=== PATIENT | male | born 1955 | race Caucasian/White ===

== ENCOUNTER 2016-09-15 06:14 | Day surgery (SDC) | payer OTHER ==
[~2016-09-15] VITALS: Ht 185.4 cm; Wt 110.8 kg
[~2016-09-15 06:14] MED LIST: ALBU6.7H INH; ASPI81TA82 PO; CARV12.52 PO; CETI10 PO; CORE6.25 PO; DICL50 PO; FLON0.053; FURO40TA PO; GLIM4TAB PO; HYDROCHLOROTHIAZIDE PO; KCL20 PO; LISI-363 PO; LISINOPRIL PO; METF-324 PO; OMEP20TA PO; ROBA750T3 PO; TRAZ100 PO; ULTR50TA PO
[2016-09-15] MEDS ORDERED: NS 1000P @30 MLS/HR (KVO) IV SCH (07:00)
[2016-09-15 07:05] VITALS: BP 132/86; PULSE 72; RESP 18; TEMP 98.3; O2SAT 98
[2016-09-15] MEDS ORDERED: FLUT1SPR22 NASAL (07:21)
[2016-09-15] MEDS ORDERED: ALBU6.7H INH (07:21)
[2016-09-15] MEDS ORDERED: CARV25TA PO (07:21)
[2016-09-15] MEDS ORDERED: DICL50TA3 PO (07:21)
[2016-09-15] MEDS ORDERED: TRAZ50TA12 PO (07:21)
[2016-09-15] MEDS ORDERED: GLIM4TAB PO (07:21)
[2016-09-15] MEDS ORDERED: FURO40TA PO (07:21)
[2016-09-15] MEDS ORDERED: RANI150T PO (07:21)
[2016-09-15] MEDS ORDERED: METF1000 PO (07:21)
[2016-09-15] MEDS ORDERED: TRAM50TA PO (07:21)
[2016-09-15] MEDS ORDERED: CETI10 PO (07:21)
[2016-09-15] MEDS ORDERED: OMEP20TA PO (07:21)
[2016-09-15] MEDS ORDERED: METH500T3 PO (07:21)
[2016-09-15] MEDS ORDERED: LISI-515 PO (07:21)
[2016-09-15] MEDS ORDERED: HYDR1CRE73 TOPICAL (07:21)
[2016-09-15] MEDS ORDERED: POTA-163 PO (07:21)
[2016-09-15] MEDS ORDERED: HEPARIN-NS/PF INJ 500 ML ONE (08:08)
[2016-09-15] MEDS ORDERED: MIDAZOLAM HCL 2 MG/2 ML VIAL ONE (08:10)
[2016-09-15] MEDS ORDERED: SODIUM CHLOR 0.9% 1000 ML INJ 1,000 ML IV SCH (08:35)
[2016-09-15] MEDS ORDERED: LORazepam 2 MG/ML VIAL IV PRN (08:45)
[2016-09-15] MEDS ORDERED: METOCLOPRAMIDE HCL 10 MG/2 ML VIAL IV PRN (08:45)
[2016-09-15] MEDS ORDERED: BACITRACIN OINT 0.9 GM PKT TOP ONE (08:45)
[2016-09-15] MEDS ORDERED: LIDOCAINE HCL 1% 50 ML VIAL INFIL PRN (08:45)
[2016-09-15] MEDS ORDERED: SODIUM CHLOR 0.9% 250 ML INJ 250 ML IV PRN (08:45)
[2016-09-15] MEDS ORDERED: MISC INFORMATION XX ONE (08:45)
[2016-09-15] MEDS ORDERED: ATROPINE SULFATE 1 MG/ML VIAL IV PRN (08:45)
[2016-09-15] MEDS ORDERED: ONDANSETRON HCL 4 MG/2 ML VIAL IV PRN (08:45)
[2016-09-15] MEDS ORDERED: IOHEXOL 350 MG/ML 50 ML BTL (for Cath Lab) OTHER ONE (10:31)
[2016-09-15] MEDS ORDERED: INSULIN REGULAR (IV INFUSION) 100 UNITS in SODIUM CHLORIDE 0.9% INJ 100 ML IV SCH (11:15)
--- NOTE | 2016-09-15 11:43 | MA ---
cc: HIRA ZHU MD DATE 09/15/2016 PROCEDURE The patient was prepped and draped in the usual fashion. A 6-sheath was inserted percutaneously into the right femoral artery. Coronary angiography was done with Rafael preformed catheters. Hemostasis was achieved with direct pressure results. The blood pressure was 140/100. CORONARY ANGIOGRAPHY The left main coronary was normal. Left anterior descending artery demonstrated some mild luminal irregularities but no significant stenoses were seen. Left circumflex artery arose from the left main and gave off a first obtuse marginal branch. There was no significant stenoses in the left circumflex system. Right coronary was anatomically dominant and was normal throughout its course. CONCLUSIONS Normal coronary arteries. Hira Zhu MD DLW/SSB /8:40 AM /11:37 AM
[2016-09-15 11:46] LABS: BLOOD, URINE NEG (NEG); COMMENT (UR) CULT NOT INDICATED; CULTURE IF INDICATED CULT NOT INDICATED; GLUCOSE,URINE NEG (NEG); KETONE, URINE NEG (NEG); NITRITE,URINE NEG (NEG); SQUAMOUS EPITHELIAL CELL URINE <1 /hpf (0-5); URINE COLOR LIGHT-YELLOW (YELLW/STRAW)
--- NOTE | 2016-09-15 12:15 | RADRPT ---
EXAM DATE/TIME: 09/15/2016 11:41 [facility] COMPARISON: No previous studies available for comparison. INDICATIONS : Pre op mitral valve replacement. MEDICAL HISTORY : Hypertension. Renal failure, chronic. Congestive heart failure. Diabetes. Mitral regurg. Shortness of breath. SURGICAL HISTORY : Bilateral hip surgery. ENCOUNTER: Initial ACUITY: 1 day PAIN SCORE: 0/10 LOCATION: Bilateral neck PEAK SYSTOLIC VELOCITIES (cm/sec): ICA/CCA RATIO: Right: 1.1 Left: 0.9 ICA: Right: 103 Left: 71 CCA: Right: 97 Left: 80 ECA: Right: 66 Left: 61 VERTEBRAL: Right: 42 antegrade Left: 51 antegrade Elevated flow velocities and ICA/CCA ratios have been found to correlate with increased degrees of vessel stenosis, calculated as percentage of diameter relative to a normal segment of distal ICA/CCA FINDINGS: RIGHT CAROTID: No significant stenosis is visualized. The waveforms are within normal limits. LEFT CAROTID: No significant stenosis is visualized. The waveforms are within normal limits. VERTEBRAL ARTERIES: Antegrade flow is seen in both vertebral arteries. MISCELLANEOUS: None. CONCLUSION: 1. No evidence for hemodynamically significant stenosis. Roger Garnett MD on September 15, 2016 at 12:13 Board Certified Radiologist. This report was verified electronically.
[2016-09-15 12:44] LABS: AUTOMATED NEUTROPHIL # 5.9 TH/MM3 (1.8-7.7); BASOPHIL % 0.4 % (0.0-2.0); EOSINOPHIL # 0.1 TH/MM3 (0-0.4); EOSINOPHIL % 0.7 % (0.0-4.0); HEMATOCRIT 27.3 % (39.0-51.0); LYMPH % 19.3 % (9.0-44.0); LYMPHOCYTE # 1.6 TH/MM3 (1.0-4.8); MEAN CELL VOLUME 74.8 FL (80.0-100.0); MEAN CORPUSCULAR HGB CONC 32.1 % (32.0-36.0); MONO % 6.6 % (0.0-8.0); PLATELET COUNT 244 TH/MM3 (150-450); RED BLOOD COUNT 3.65 MIL/MM3 (4.50-5.90); WHITE BLOOD COUNT 8.1 TH/MM3 (4.0-11.0)
[2016-09-15 12:47] LABS: HEMO FLAGS AUTO DIFF
--- NOTE | 2016-09-15 12:56 | MB ---
cc: GRETA FORTE DATE OF CONSULTATION 09/15/[address] Hill CLINICAL INFORMATION SYSTEMS DIRECTOR Dr. Hira Zhu DATE OF 02/23/1959. HISTORY OF PRESENT ILLNESS A 61-year-old male with history of mitral valve regurgitation and also tricuspid valve involvement, complaining of shortness of breath and wheezing when trying to climb the stairs to the second floor, prior history of congestive heart failure. He underwent 2-D echo by Dr. Zhu and was found to have a mildly dilated left ventricle, EF of 60%, mild concentric left ventricular hypertrophy. The right ventricle was also dilated. The left atrium was mildly moderately dilated. The right atrial size is mild to moderately dilated. There was some anterior mitral valve leaflet prolapse, moderate mitral valve regurgitation, moderate to severe tricuspid valve regurgitation, moderate to severe pulmonary hypertension with pulmonary artery systolic pressures of 69, inferior vena cava normal in size. We were consulted to evaluate for mitral valve replacement versus repair and also tricuspid valve repair. PAST MEDICAL HISTORY 1. Hypertension. 2. Hyperlipidemia. 3. Chronic kidney disease Stage III. 4. Diabetes mellitus with diabetic neuropathy. 5. Degenerative disk disease. 6. Gastroesophageal reflux disease. 7. Insomnia. 8. Lumbar radiculopathy. 9. Migraine headaches. 10. Rotator cuff tendonitis PAST SURGICAL HISTORY 1. Colonoscopy. 2. Esophagogastroduodenoscopy. 3. He has had bilateral hip surgery and unfortunately apparently had DVT in his right lower leg in the 1980s which, then he apparently developed pulmonary emboli where he was placed on Coumadin for about a year. ALLERGIES No known allergies. HOME MEDICATIONS 1. Coreg 25 b.i.d. 1. Diclofenac. 2. Flonase. 3. Lasix 40 daily. 4. Glimepiride 4 mg daily. 5. Lisinopril 20 p.o. b.i.d. 6. Metformin 1000 b.i.d. 7. Methocarbamol 500 p.o. b.i.d. 8. Omeprazole 20 p.o. daily. 9. Potassium chloride 20 b.i.d. 10. Proventil inhaler p.r.n. as needed. 11. Zantac 150 daily. 12. Tramadol 50 p.o. t.i.d. p.r.n. for pain. 13. Trazodone 50 q.h.s. for sleep. FAMILY HISTORY Noncontributory. SOCIAL HISTORY The patient is . No tobacco or alcohol. 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 REVIEW OF SYSTEMS IN GENERAL: No night sweats, fever, heat and cold intolerance. SKIN: No psoriasis, itching or hives. HEENT: No blurred vision, hearing loss. RESPIRATORY: Positive for shortness of breath. No cough. CARDIOVASCULAR: No paroxysmal nocturnal dyspnea. No orthopnea. GASTROINTESTINAL: No diarrhea, vomiting. GENITOURINARY: No burning frequency, urgency. NEWSPAPER LIBRARY MANAGER: No history of TIA, CVA, seizure disorder. ENDOCRINOLOGY: Positive for diabetes. PHYSICAL EXAMINATION VITAL SIGNS: Blood pressure 130/80, heart rate 72, afebrile, respiratory rate of 18, room air sat 96%. GENERAL: The patient is awake, alert, in no acute distress. HEENT: Head is normocephalic, atraumatic. Pupils equal and reactive. Oral mucosa pink, moist. NECK: Supple. No JVD. HEART SOUNDS: S1, S1. Grade 3/6 systolic murmur best noted at the apex. LUNGS: Clear to auscultation. No wheezes, rales or rhonchi. ABDOMEN: Soft, nontender. No masses or organomegaly. EXTREMITIES: No cyanosis, clubbing or edema. LAB WORK Hemoglobin 10.4, hematocrit 32, white cell count of 11, platelet count 289, MCV is 76. Sodium 143, potassium 5.0, BUN of 27, creatinine 1.57, glucose 73, INR 1.0. 2-D ECHO As above in HPI. CAROTID ULTRASOUND Pending. CHEST X-RAY Pending. IMPRESSION This is a very pleasant 61-year-old male with moderate mitral regurgitation, also tricuspid valve regurgitation with elevated pulmonary artery systolic pressure of 69. The cardiac films have been evaluated by Dr. Greta Forte and a cardiac cath was reviewed. The patient did not have any coronary artery disease. PLAN AT THIS TIME Mitral valve repair versus replacement and tricuspid valve repair will be scheduled for September 25, 2016. The patient is a agreeable to proceed. Further planning as per Dr. Greta Forte. Dictated by: ANTOINE Chaves MD FIDEL Gee/DERECK /11:42 AM /12:53 PM
[2016-09-15 13:15] LABS: OVALOCYTES 1+ (NORMAL)
[2016-09-15 13:16] LABS: SCAN/DIFF AUTO DIFF CONFIRMED
--- NOTE | 2016-09-15 15:57 | RADRPT ---
EXAM DATE/TIME: 09/15/2016 15:42 [facility] COMPARISON: CHEST PA & LAT, November 12, 2013, 14:22. INDICATIONS : Evaluate for pneumonia, pneumothorax, and communicable disease. Pre op heart surgery. MEDICAL HISTORY : None. SURGICAL HISTORY : None. ENCOUNTER: Initial ACUITY: 1 day PAIN SCORE: 0/10 LOCATION: Bilateral chest FINDINGS: There is stable blunting of the right lateral costophrenic angle slight elevation of the right hemidi aphragm. The lungs are otherwise clear. There are degenerative changes of the spine and mild cardiome jose. CONCLUSION: No significant change has occurred. oRger Garnett MD on September 15, 2016 at 15:55 Board Certified Radiologist. This report was verified electronically.
[2016-09-15 17:38] LABS: HEMOGLOBIN A1a 1.2 %; HEMOGLOBIN A1b 1.8 %; HEMOGLOBIN Ao 83.9 %; HEMOGLOBIN LA1C 2.4 %; HEMOGLOBIN P3 5.8 %
--- NOTE | 2016-10-07 10:04 | RSPPFT ---
DATE OF PROCEDURE: 09/15/16 COMMENTS: Spirometry with FVC of 3.5 predicted 4.9, FEV1 of 2.7 predicted 3.9, FEV1/FVC ratio 78% predicted 79%. IMPRESSION: On the basis of the above, patient's flow values are marginally decreased and lung volumes would be necessary.
== END 2016-09-15 16:24 | disposition home or self-care (01) ==
LOC: HDOC 06:14 → HDIC 06:14 → HDOC 16:24
PROVIDERS: ATTEND Internal Medicine Cardiovascular Disease
DX: I34.0 Nonrheumatic mitral (valve) insufficiency (principal); I50.9 Heart failure, unspecified; I27.2 Other secondary pulmonary hypertension; I12.9 Hypertensive chronic kidney disease with stage 1 through stage 4 chronic kidney disease, or unspecified chronic kidney disease; N18.3 Chronic kidney disease, stage 3 (moderate); E11.40 Type 2 diabetes mellitus with diabetic neuropathy, unspecified; E78.5 Hyperlipidemia, unspecified; K21.9 Gastro-esophageal reflux disease without esophagitis; Z79.84 Long term (current) use of oral hypoglycemic drugs; Z86.711 Personal history of pulmonary embolism; Z86.718 Personal history of other venous thrombosis and embolism; Z01.818 Encounter for other preprocedural examination
CPT/HCPCS: 71020; 81001; 82948; 83036; 85025; 87641; 93454; 93880; 94010; C1769; C1893; J1644; J2250; J7030; Q9967

== ENCOUNTER 2016-09-16 17:01 | Inpatient (IN) | payer OTHER ==
[~2016-09-16] VITALS: Ht 185.4 cm; Wt 114.8 kg
[~2016-09-16 17:01] MED LIST changes: -ASPI81TA82 PO; -CARV12.52 PO; +CARV25TA PO; -CORE6.25 PO; -DICL50 PO; +DICL50TA3 PO; -FLON0.053; +FLUT1SPR22 NASAL; +HYDR1CRE73 TOPICAL; -HYDROCHLOROTHIAZIDE PO; -KCL20 PO; -LISI-363 PO; +LISI-515 PO; -LISINOPRIL PO; -METF-324 PO; +METF1000 PO; +METH500T3 PO; +POTA-163 PO; +RANI150T PO; -ROBA750T3 PO; +TRAM50TA PO; -TRAZ100 PO; +TRAZ50TA12 PO; -ULTR50TA PO
[2016-09-25] VITALS (8 sets, daily range): BP systolic 113–152; BP diastolic 72–95; PULSE 78–88; RESP 10–18; TEMP 97.5–98.6; O2SAT 95–99
[2016-09-25] MEDS ORDERED: ceFAZolin 2 GM PREMIX 50 ML IV ONE (05:00)
[2016-09-25] MEDS ORDERED: VECURONIUM BROMIDE 10 MG VIAL IV ONE (05:00)
[2016-09-25] MEDS ORDERED: EPINEPHrine HCL (1:1000) 1 MG/ML VIAL IV ONE (05:00)
[2016-09-25] MEDS ORDERED: PHENYLEPHRINE HCL 10 MG/ML VIAL IV ONE (05:00)
[2016-09-25] MEDS ORDERED: DEXMEDETOMIDINE IV ONE (05:00)
[2016-09-25] MEDS ORDERED: MAGNESIUM SULFATE 1000 MG/2 ML VIAL (PED) IV ONE (05:00)
[2016-09-25] MEDS ORDERED: CALCIUM CHLORIDE 10% SOLN 1 GRAM/10 ML SYR IV ONE (05:00)
[2016-09-25] MEDS ORDERED: SODIUM CHLORIDE 0.9% IV ONE (05:00)
[2016-09-25] MEDS ORDERED: PROTAMINE SULFATE 250 MG/25 ML VIAL IV ONE ×2 (05:00→09:44)
[2016-09-25] MEDS ORDERED: LIDOCAINE HCL 2% 100 MG/5 ML SYRINGE IV PUSH ONE (05:00)
[2016-09-25] MEDS ORDERED: ARTIFICIAL TEARS OPTH OINT 3.5 APPLIC/3.5 GM TUBO ONE (05:00)
[2016-09-25] MEDS ORDERED: ACETAMINOPHEN 1000 MG/100 ML VIAL IV ONE (05:00)
[2016-09-25] MEDS ORDERED: LIDOCAINE HCL 1% 30 ML VIAL OTHER ONE (05:00)
[2016-09-25] MEDS ORDERED: HEPARIN SODIUM - SQ 10,000 UNITS/ML VIAL SQ ONE (05:00)
[2016-09-25] MEDS ORDERED: INSULIN HUMAN REGULAR 1,000 UNITS/10 ML VIAL SQ PRN (09:00)
[2016-09-25] MEDS ORDERED: METOPROLOL TARTRATE 25 MG TAB PO SCH (09:00)
[2016-09-25] MEDS ORDERED: CHLORHEXIDINE GLUCONATE 4% SOLN 120 ML BTL TOPICAL SCH (09:00)
[2016-09-25] MEDS ORDERED: CEFAZOLIN 500 MG in NS IRR BTL 500 ML IRRIGATION SCH (09:00)
[2016-09-25] MEDS ORDERED: POVIDONE IODINE 5% (ANTISEPSIS KIT) 4 APPLICATIONS EACH NARE PRN (09:00)
[2016-09-25] MEDS ORDERED: INSULIN REGULAR 100 UNITS in NS 100 ML IV SCH (09:00)
[2016-09-25] MEDS ORDERED: ceFAZolin 2 GM PREMIX 50 ML IV SCH (09:00)
[2016-09-25] MEDS ORDERED: CHLORHEXIDINE GLUCONATE 2 % 1 PACK (2 CLOTHS) TOPICAL PRN (09:00)
[2016-09-25] MEDS ORDERED: METOPROLOL TARTRATE 25 MG TAB PO PRN (09:00)
[2016-09-25] MEDS ORDERED: LACTATED RINGER'S 1000 ML IV PRN (09:00)
[2016-09-25] MEDS ORDERED: SODIUM CHLORID 0.9% 500 ML IV PRN (09:00)
[2016-09-25] MEDS ORDERED: ASPI81CH CHEW (09:12)
[2016-09-25] MEDS ORDERED: DILTIAZEM IRRIGATION SCH (09:15)
[2016-09-25] MEDS ORDERED: SODIUM CHLORIDE 0.9% IRRIGATION SCH (09:15)
[2016-09-25] MEDS ORDERED: NITROGLYCERIN IRRIGATION SCH (09:15)
[2016-09-25] MEDS ORDERED: NORMOSOL R INJ 2,000 ML IV ONE (09:45)
[2016-09-25] MEDS ORDERED: SODIUM CHLORID 0.9% 500 ML INJ 500 ML IV ONE (09:45)
[2016-09-25] MEDS ORDERED: LACTATED RINGER'S 1000 ML INJ 2,000 ML IV ONE (09:45)
[2016-09-25] MEDS ORDERED: SODIUM CHLOR 0.9% 250 ML INJ 500 ML IV ONE (09:45)
[2016-09-25] MEDS ORDERED: CUSTODIOL HTK IRR SOLN 1,000 ML ONE (09:56)
[2016-09-25] MEDS ORDERED: HEPARIN SODIUM - IV 10,000 UNITS/10 ML VIAL ONE (09:57)
[2016-09-25] MEDS ORDERED: MANNITOL INJ 50 ML ONE (09:57)
[2016-09-25] MEDS ORDERED: ALBUMIN HUMAN 25% 12.5 GM/50 ML BAGP IV ONE (09:58)
[2016-09-25] MEDS ORDERED: POTASSIUM CHLORIDE 20 MEQ/10 ML VIAL ONE (09:58)
[2016-09-25] MEDS ORDERED: SODIUM BICARBONATE 8.4% INJ 50 ML ONE (09:59)
[2016-09-25] MEDS ORDERED: HEPARIN SODIUM - SQ 10,000 UNITS/ML VIAL ONE (10:05)
[2016-09-25] MEDS ORDERED: ceFAZolin 2 GM PREMIX 50 ML ONE (10:05)
[2016-09-25] MEDS ORDERED: methylPREDNISolone SOD SUCC 125 MG/2 ML VIAL ONE (10:05)
[2016-09-25] MEDS ORDERED: VANCOMYCIN HCL 1000 MG VIAL ONE (10:05)
[2016-09-25] MEDS ORDERED: BUPIVACAINE HCL PF 0.5% 30 ML VIAL ONE (10:06)
[2016-09-25] MEDS ORDERED: ceFAZolin INJ 1,000 MG VIAL IV ONE (15:50)
[2016-09-25] MEDS ORDERED: LACTATED RINGER'S 1000 ML INJ 500 ML IV PRN (16:36)
[2016-09-25] MEDS ORDERED: ONDANSETRON HCL 4 MG/2 ML VIAL IV PUSH PRN (16:45)
[2016-09-25] MEDS ORDERED: ACETAMINOPHEN 325 MG TAB PO PRN (16:45)
[2016-09-25] MEDS ORDERED: ACETAMINOPHEN 650 MG SUPP RECTAL PRN (16:45)
[2016-09-25] MEDS ORDERED: CALCIUM CHLORIDE INJ 1 GM in SODIUM CHLORIDE 0.9% INJ 100 ML IV PRN (16:45)
[2016-09-25] MEDS ORDERED: DEXTROSE 50% IN WATER 50 ML VIAL(D50) IV PUSH PRN (16:45)
[2016-09-25] MEDS ORDERED: MAGNESIUM SULFATE INJ 2 GM in SODIUM CHLORIDE 0.9% INJ 100 ML IV PRN ×4 (16:45)
[2016-09-25] MEDS ORDERED: Post-op Orders (for Pharmacy) MISC OTHER ONE (16:45)
[2016-09-25] MEDS ORDERED: hydrALAZINE HCL 20 MG/ML VIAL IV PRN (16:45)
[2016-09-25] MEDS ORDERED: CALCIUM CHLORIDE 10% 1 GRAM/10 ML VIAL IV PRN (16:45)
[2016-09-25] MEDS ORDERED: MEPERIDINE HCL 25 MG/ML VIAL IV PRN (16:45)
[2016-09-25] MEDS ORDERED: METOPROLOL TARTRATE 5 MG/5 ML VIAL IV PUSH PRN (16:45)
[2016-09-25] MEDS ORDERED: POTASSIUM CHLOR 20 MEQ PREMIX 100 ML IV PRN ×3 (16:45)
[2016-09-25] MEDS ORDERED: POTASSIUM CHLORIDE 20 MEQ CONTROLLED RELEASE TAB PO PRN ×2 (16:45)
[2016-09-25] MEDS ORDERED: INSULIN REGULAR (IV INFUSION) 100 UNITS in SODIUM CHLORIDE 0.9% INJ 99 ML IV SCH (17:00)
[2016-09-25] MEDS ORDERED: CLEVIDIPINE INJ 50 ML IV SCH (17:00)
--- NOTE | 2016-09-25 17:13 | PD.OP ---
cc: Greta Forte MD; Hira Zhu MD Operative Report Date of Surgery: Sep 25, 2016 Preoperative Diagnosis: (1) Acute congestive heart failure (2) Mitral regurgitation Postoperative Diagnosis: same Cyst of unknown etiology behind the aorta and left atrium Dense pericardial adhesions Procedure: Mitral valve replacement with a 31/33 OnX mechanical valve, OPAL Attempted minimally invasive approach with a right thoracotomy Anesthesia: Dr. Nolasco Surgeon: Greta Forte Travel Occupational Therapist(s): Brandon Pelletier Operation and Findings: The risks, benefits, complications, treatment options, and expected outcomes were discussed with the patient. The possibilities of reaction to medication, pulmonary aspiration, perforation of viscus, bleeding, recurrent infection, the need for additional procedures, failure to diagnose a condition, and creating a complication requiring transfusion or operation were discussed with the patient. The patient concurred with the proposed plan, giving informed consent. The site of surgery properly noted/marked. The patient was taken to Operating Room, identified as Javier Claudio and the procedure verified as Mitral Valve Replacement, OPAL. A Time Out was held and the above information confirmed. Standard monitoring lines and Grider catheter were placed. General anesthesia was induced. The patient was prepped and draped in a sterile fashion. A 6 cm right anterolateral thoracotomy was performed An Miguel Angel retractor was placed followed by a small chest retractor. The left lung was selectively ventilated. Adhesions between the right lung and mediastinum were divided. The pericardium was opened and dense adhesions were appreciated between the pericardium and epicardium. No plane could be developed to expose the aorta. Therefore, a median sternotomy was performed. The pericardium was opened and adhesions between the pericardium, epicardium and great vessels were divided using sharp and blunt dissection. There were dense calcified adhesions between the aorta, right atrium, pericardium and SVC. The patient was heparinized for cardiopulmonary bypass. The heart was instrumented for cardiopulmonary bypass in the usual manner. Antegrade Custodiol cardioplegia was employed. The patient was placed on cardiopulmonary bypass. Once the heart was decompressed, adhesions could safely be divided involving the SVC and pericardium to allow access to Waterston's groove. During the course of this dissection, a thick- walled cystic cavity was entered behind the aorta and left atrium. Yellow, cloudy fluid was evacuated from this pocket which measured approximately ~4 x 3 cm. Fluid was sampled for cultures and a stat gram stain was sent. The gram stain did not show any organisms. The wall of this cavity was biopsied and submitted to surgical pathology. Waterston's groove was exposed. An aortic cross-clamp was applied and the heart was arrested using cold Custodiol cardioplegia. The left atrium was entered under direct vision and the atriotomy was extended inferiorly and posteriorly. The mitral valve was exposed using an automatic retractor. Due to the mediastinal adhesions, exposure and instrumentation of the valve was performed through the previously placed right thoracotomy. The valve was analyzed and sized to a 31/33/ OnX mechanical valve. which was seated using several interrupted 2-0 Tycron pledgeted horizontal mattress sutures. After securing the sutures, the left atrium was closed using a running 4-0 Prolene suture and a small catheter was left in the left atrium to assist in venting the heart. The patient was systemically rewarmed. The heart was vigorously deaired with a clamp on. The patient was placed in Trendelenburg's position. The clamp was removed, deairing continued. Intraoperative OPAL was used to assess intracardiac air and the mitral valve replacement. Once the air was evacuated, the vent in the left atrium was removed and the suture line was secured. The heart was loaded and allowed to eject and the mitral valve was analyzed by OPAL. The valve was well-seated with perivalvular leaks. The patient was weaned from cardiopulmonary bypass. Protamine was given. There was no adverse reaction. Decannulation was carried out without incident. Wound was checked for hemostasis which was obtained using electrocautery. A 36 Spanish mediastinal and 32 F right pleural chest tubes were placed and secured to the skin with 0 silk suture. The sternum was closed with stainless steel wire. The fascia was closed with 1. PDS. The subcutaneous tissue was closed using a running 2-0 Vicryl suture. The skin was closed with 4-0 Monocryl. The right thoracotomy was closed using a 2 Vicryl paracostal stitch. The pectoralis fascia was closed using a running 0 Vicryl suture. Subcutaneous tissue was closed with a 2-0 Vicryl suture and skin with 4-0 monocryl. Sterile dressings were placed. At the end of the operation, all sponge, instruments, and needle counts were correct. The patient was transferred to the CVICU in stable condition. Findings: Dense pericardial adhesions, especially involving the SVC, right atrium, aorta, and pericardium. A cystic cavity filled with yellow, cloudy fluid behind the aorta and left atrium. Flail anterior mitral valve leaflet with ruptured chordae. The patient had moderate TR at the beginning of the procedure which was improved after MVR. XC: 112 min CPB: 151 min Drains: mediastinal x 1 pleural x 1 Specimens: Aerobic, anaerobic, fungal cultures of cyst fluid, cyst wall biopsies Implants: OnX mechanical valve Complications: none Disposition: to CVICU in stable condition Greta Forte MD Sep 25, 2016 17:13
[2016-09-25] MEDS ORDERED: MIDAZOLAM HCL 5 MG/5 ML VIAL ONE (17:24)
[2016-09-25] MEDS ORDERED: fentaNYL CITRATE 1000 MCG/20 ML VIAL ONE (17:24)
--- NOTE | 2016-09-25 17:52 | RADRPT ---
EXAM DATE/TIME: 09/25/2016 17:16 [facility] COMPARISON: CHEST PA & LAT, September 15, 2016, 15:42. INDICATIONS : Post CABG. MEDICAL HISTORY : None. SURGICAL HISTORY : None. ENCOUNTER: Initial ACUITY: 1 day PAIN SCORE: Non-responsive. LOCATION: Bilateral chest FINDINGS: ET tube is present with tip overlapping approximately 3 cm above the ezra. There is evidence for pr ior median sternotomy. Slight bibasilar and bilateral perihilar infiltrate is seen. No definite pneum othorax is seen for technique. CONCLUSION: Bilateral perihilar infiltrate part of it could be due to edema, however pneumonia should also be ent ertained. Nelly Syed MD on September 25, 2016 at 17:49 Board Certified Radiologist. This report was verified electronically.
[2016-09-25] MEDS: ACETAMINOPHEN 1000 MG/100 ML VIAL IV SCH ×2 (18:58→23:03)
[2016-09-25] MEDS: AMIODARONE 200 MG TAB PO SCH (20:26)
[2016-09-25] MEDS: METOCLOPRAMIDE HCL 10 MG/2 ML VIAL IV PUSH SCH (20:26)
[2016-09-26] VITALS (19 sets, daily range): BP systolic 114–160; BP diastolic 69–98; PULSE 78–94; RESP 16–20; TEMP 98.2–98.8; O2SAT 92–99
[2016-09-26] MEDS: oxyCODONE/ACETAMINOPHEN 5 MG/325 MG TAB PO PRN ×6 (01:20→22:22)
[2016-09-26] MEDS: ACETAMINOPHEN 1000 MG/100 ML VIAL IV SCH ×2 (04:27→13:25)
--- NOTE | 2016-09-26 05:00 | RADRPT ---
EXAM DATE/TIME: 09/26/2016 04:21 [facility] COMPARISON: CHEST SINGLE AP, September 25, 2016, 17:16. INDICATIONS : Status post CABG. MEDICAL HISTORY : None. SURGICAL HISTORY : None. ENCOUNTER: Subsequent ACUITY: 1 day PAIN SCORE: Non-responsive. LOCATION: chest FINDINGS: A single portable frontal view of the chest shows interval removal of the endotracheal tube. Left sub clavian central line remains. Subxiphoid and right thoracostomy tube remains. No pneumothorax. Patchy parenchymal consolidation involving both lung bases is stable. Heart is normal size. No effusions. CONCLUSION: Interval extubation. Patchy basilar consolidation likely related to atelectasis. No discrete infiltra te observed. Damian Chase Jr., MD on September 26, 2016 at 4:57 Board Certified Radiologist. This report was verified electronically.
[2016-09-26 05:29] LABS: HEMATOCRIT 28.7 % (39.0-51.0); MEAN CELL VOLUME 75.6 FL (80.0-100.0); MEAN CORPUSCULAR HEMOGLOBIN 24.1 PG (27.0-34.0); MEAN CORPUSCULAR HGB CONC 31.8 % (32.0-36.0); PLATELET COUNT 177 TH/MM3 (150-450); RED CELL DISTRIBUTION WIDTH 16.7 % (11.6-17.2); WHITE BLOOD COUNT 18.7 TH/MM3 (4.0-11.0)
[2016-09-26 05:30] LABS: REVIEW FLAG FINAL
[2016-09-26 05:44] LABS: MAGNESIUM 2.3 MG/DL (1.5-2.5); POTASSIUM 4.1 MEQ/L (3.5-5.1)
[2016-09-26] MEDS ORDERED: PANTOPRAZOLE SODIUM 40 MG VIAL IV PUSH SCH (06:00)
[2016-09-26] MEDS: PANTOPRAZOLE SOD 40 MG DELAYED RELEASE TAB PO SCH (06:07)
[2016-09-26] MEDS: METOCLOPRAMIDE HCL 10 MG/2 ML VIAL IV PUSH SCH ×4 (06:11→22:02)
[2016-09-26] MEDS ORDERED: INSULIN DETEMIR 100 UNITS/ML VIAL SQ ONE (08:45)
[2016-09-26] MEDS ORDERED: BISACODYL 10 MG SUPP RECTAL PRN (08:45)
[2016-09-26] MEDS ORDERED: SOD PHOSPHATE/SOD BIPHOSPHATE (ADULT) ENEMA 133ML RECTAL PRN (08:45)
[2016-09-26] MEDS ORDERED: DEXTROSE 50% IN WATER 50 ML VIAL(D50) IV PRN (08:45)
[2016-09-26] MEDS ORDERED: GLUCAGON 1 MG/ML VIAL OTHER PRN (08:45)
[2016-09-26] MEDS ORDERED: FUROSEMIDE 20 MG/2 ML VIAL IV PUSH ONE (09:00)
[2016-09-26] MEDS ORDERED: POTASSIUM CHLORIDE 10 MEQ CONTROLLED RELEASE TAB PO ONE (09:00)
[2016-09-26] MEDS: MULTIVITAMINS/MINERALS THERAPEUTIC TAB PO SCH (09:29)
[2016-09-26] MEDS: CARVEDILOL 3.125 MG TAB PO SCH ×2 (09:29→22:02)
[2016-09-26] MEDS: ASPIRIN 81 MG CHEW TAB PO SCH (09:30)
[2016-09-26] MEDS: AMIODARONE 200 MG TAB PO SCH ×2 (09:30→22:02)
[2016-09-26] MEDS: INSULIN ASPART SUPPLEMENTAL SCALE SQ SCH ×4 (10:00→22:12)
[2016-09-26] MEDS: RESP: ALBUTEROL 2.5 MG/IPRATROPIUM 0.5 MG NEB (SCH) NEB ×2 (13:06→21:26)
--- NOTE | 2016-09-26 14:14 | PD.CAR.PN ---
CVT Progress Note CVT: POD #: 1 Subjective/Hospital Course: 61/ male hx of severe MR and TR echo i August showed dilation of LV with preserved EF , pt had noted some mild dyspnea with exertion PMH: HTN, HLP, mild CHF EF 60% , CKD stage 111, DM surgery: Mitral valve replacement with a OnX mechanical valve, OPAL Attempted minimally invasive approach with a right thoracotomy cyst removed from behind aorta and left atrium ( gram stain neg for organisms ) 09/25 3200cc/ crystalloid, 750cc cell saver, EBL 1500 extubated after surgery 09/26 pt up in chair, pain controlled weaned off insulin gtt resume oral Diabetic meds in am pulm toileting , nebs, ezpap will transfer to stepdown Objective: GENERAL: SKIN: Warm and dry.prevena dressing to chest HEAD: Normocephalic. EYES: No scleral icterus. No injection or drainage. NECK: Supple, trachea midline. No JVD or lymphadenopathy. CARDIOVASCULAR: Regular rate and rhythm without murmurs, gallops, or rubs. + click mild general edema RESPIRATORY: Breath sounds equal bilaterally. No accessory muscle use. chest tube to wall suction / 220cc/ 12 hrs GASTROINTESTINAL: Abdomen soft, non-tender, nondistended. MUSCULOSKELETAL: No cyanosis, or edema. BACK: Nontender without obvious deformity. No CVA tenderness. Vital Signs Date Time Temp Pulse Resp B/P Pulse Ox O2 Delivery O2 Flow Rate FiO2 09/26/16 12:30 98 Nasal Cannula 3.00 09/26/16 11:15 98.4 81 18 140/86 97 09/26/16 11:01 18 09/26/16 09:42 94 Nasal Cannula 3.00 09/26/16 07:46 83 09/26/16 07:46 98.2 83 16 147/97 98 141/74 09/26/16 07:46 98 Nasal Cannula 3.00 09/26/16 04:00 98.7 78 16 132/87 98 148/71 09/26/16 04:00 80 09/26/16 04:00 98 Nasal Cannula 4.00 09/26/16 00:00 99 Nasal Cannula 4.00 09/26/16 00:00 81 09/26/16 00:00 98.2 79 18 114/72 99 128/69 09/25/16 23:45 18 09/25/16 23:04 16 09/25/16 21:15 98 Nasal Cannula 3.00 09/25/16 20:00 97.7 80 18 127/82 98 137/73 09/25/16 20:00 98 Nasal Cannula 4.00 09/25/16 19:50 80 09/25/16 18:35 95 Nasal Cannula 4 09/25/16 18:35 95 Nasal Cannula 4.00 09/25/16 18:15 99 40 09/25/16 18:09 50 09/25/16 18:09 98 Mechanical Ventilator 50 09/25/16 18:09 98.6 88 10 113/72 97 135/72 09/25/16 17:19 99 50 Labs: Laboratory Tests Test 09/26/16 05:00 White Blood Count 18.7 TH/MM3 (4.0-11.0) Red Blood Count 3.80 MIL/MM3 (4.50-5.90) Hemoglobin 9.1 GM/DL (13.0-17.0) Hematocrit 28.7 % (39.0-51.0) Mean Corpuscular Volume 75.6 FL (80.0-100.0) Mean Corpuscular Hemoglobin 24.1 PG (27.0-34.0) Mean Corpuscular Hemoglobin 31.8 % Concent (32.0-36.0) Red Cell Distribution Width 16.7 % (11.6-17.2) Platelet Count 177 TH/MM3 (150-450) Mean Platelet Volume 7.4 FL (7.0-11.0) Sodium Level 143 MEQ/L (136-145) Potassium Level 4.1 MEQ/L (3.5-5.1) Chloride Level 109 MEQ/L (98-107) Carbon Dioxide Level 26.0 MEQ/L (21.0-32.0) Anion Gap 8 MEQ/L (5-15) Blood Urea Nitrogen 22 MG/DL (7-18) Creatinine 1.36 MG/DL (0.60-1.30) Estimat Glomerular Filtration 53 ML/MIN (>89) Rate Random Glucose 82 MG/DL (74-106) Calcium Level 7.8 MG/DL (8.5-10.1) Magnesium Level 2.3 MG/DL (1.5-2.5) Result Diagram: 09/26/16 0500 09/26/16 0500 Telemetry: NSR (1) Chronic back pain (2) Mitral regurgitation (3) S/P MVR (mitral valve replacement) Plan: on ASA, start low dose coreg pulm toileting OOB/ ambulate, leave chest tubes in CM to eval for HHC (4) Hypertension, benign Plan: controlled (5) CHF (congestive heart failure) (6) Diabetes mellitus type 2, controlled Plan: on diabetic diet/ weaned off IV insulin gtt start po meds in am (7) Chronic kidney disease Plan: baseline 1.5 > 1.32 Problem Qualifiers (1) Chronic kidney disease: Qualified Code: N18.3 - Chronic kidney disease, stage 3 (moderate) Shasta Ramírez Sep 26, 2016 14:14
--- NOTE | 2016-09-26 14:19 | HHI.FF ---
Face to Face Verification Diagnosis: (1) DM (diabetes mellitus) (2) Acute congestive heart failure (3) Chronic kidney disease (4) Chronic back pain (5) Diabetes mellitus type 2, controlled (6) S/P MVR (mitral valve replacement) Home Health Nursing Order: Signs/symptoms of disease process Diabetic education Wound care and dressing changes Nursing assessment with vital signs Instructions: Heart and Vascular Surgery patients *Special attention to sternal dressing Mandatory frequency Assess and evaluation, 4 days in a row The next week 3X week 2 times a week for 4 weeks 1 time a week for 5 weeks Schedule Heart and Vascular patients for full 60 day certification period Initial visit Review Open Heart Surgery Discharge Instructions (Sternal precautions, Activity, Elastic hose, Incision care, Driving, Incentive spirometry, Smoking, [place], Work and other) Need Betadine to paint incision Medication reconciliation Importance of follow up care/ check on appointments Make calendar record temperature daily When to call [facility] nurse, review instructions, phone list Incentive Spirometry, demonstration Visit 1- Begin discharge instruction for patient family and/ or caregiver using teach back method- Signs and symptoms of infection Disease characteristics Medicines and side effects Foods and nutrition/ appetite Infection control/ hand washing/ hygiene Visit 2- Continue teaching Discharge instructions- include additional information on smoking cessation , sternal dressing (sternal vac) Visit 3- Continue teaching- Cough and deep breathing, incision monitoring. Choose my plate Visit 4- Continue teaching- Discuss limitations Discuss how they are feeling Discuss progress toward goals Remaining visits- continue teaching and monitoring PREVENA Single Use Negative Wound Therapy System Caregiver Instruction Sheet 1. A Prevena dressing system was applied to the chest incision during surgery , to promote wound healing. It works via a suction device (negative pressure wound therapy) to remove low to moderate levels of exudate (drainage) and infectious materials. We recommend that the device stay in place for up to seven days, from day of surgery. 2. Day of Surgery__/ Day of Removal ___/ 3. The dressing should only be removed by a health long term care administrator. Please arrange removal of device to coincide with Home Health visit and or with Nursing staff at Rehab 4. If skin reddening or irritation of skin occurs, or excessive drainage, please notify the Cardiovascular Surgeons office at [phone]. 5. Light showering is permissible; however the pump should be disconnected and placed in safe location, where it will not get wet. The dressing should not be exposed to direct spray or submerged in water. No bath tub / shower only. Ensure the end of the tubing attached to the dressing is facing down so that water does not enter the top of the tube. 6. To remove Prevena dressing: press purple button to turn off device / remove the suction. Then disconnect the tubing from the pump. The fixation strips should be stretched away from the skin and the dressing lifted at one corner and peeled back until it has been fully removed. 7. After removal, it is ok to shower daily using liquid dial soap and clean wash cloth, rinse and pat dry, and leave incision open to air dry. For any concerns regarding Prevena dressing, and or wounds, please contact Ana Del Rosario, patient navigator at [phone] or notify the Cardiovascular Surgeons office at [phone]. Incentive spirometry Q1 hr x 10, while awake, also use acapella device hourly whole awake Sternal Breast Bone Precautions: NO pushing or pulling, ( pt must use sternal pillow to support chest with all activities and with coughing ( takes up to 3 months breast bone to heal ) Daily incision care: ok to shower daily, no tub bath. Wash all incisions with liquid dial soap, clean wash cloth to each site, rinse and pat dry. Observe for any signs of infection, such as drainage which is dark yellow, hooks, green or foul smelling. Immediately report to the surgeon any drainage from the chest incision, or legs, and for any abnormal drainage from the chest tube sites. Notify surgeon if any temp >101.5 degrees F. When specialty dressing removed/ or if you do not have one, continue to shower daily as above, then rinse and pat incision dry and paint with betadine daily x 5 days. Allow steri strips to fall off if you have any. Avoid lotions, creams, salves, oils, etc. for the first month Please see attached forms for additional instructions regarding post Open Heart specialty wound vacuum dressings. PADMINI or Prevena , Dressing to be removed by Nursing staff on ___10/02/16____ For Dr. Forte patients , please obtain CBC, BMP, PA & Lat CXR in 2 weeks, results to Dr. Forte ( prescription will be given) ( ) (Tele: [phone]) , Valve replacement pts will need 2decho in 2 weeks with results to Dr. Forte . Please obtain 2 d echo at your machine installer office if possible F/U appointment: as per DC instructions: PCP in 2 weeks, CV surgeon 2 weeks, Freight Separator 3-4 weeks For any questions regarding incisions/ dressing / meds / post op care or above Symptoms, Thursday 8am-5pm Heart & Vascular Surgery Office ( Dr. Arteaga & Dr. Forte), After Hours / Nights (5pm -8am) Weekends and Holidays Please call [facility] ([facility]) Charge Nurse I have seen patient Javier Claudio on 09/26/16. My clinical findings support the need for the requested home health care services because: Deconditioned w/ increased weakness I certify that my clinical findings support that this patient is homebound because: Post-op weakness Shasta Ramírez Sep 26, 2016 14:19
--- NOTE | 2016-09-26 19:37 | EKG ---
Date Performed: 09/26/2016 Time Performed: 02:33:28 PTAGE: 61 years EKG: Sinus rhythm Compared to prior tracing no significant change Normal ECG PREVIOUS TRACING : 11/12/2013 13.56 DOCTOR: Azael Izquierdo Interpretating Date/Time 09/26/2016 19:34:18
[2016-09-26] MEDS: DOCUSATE SODIUM 100 MG CAP PO SCH ×2 (21:00→22:02)
[2016-09-26] MEDS: traZODone HCL 50 MG TAB PO SCH (22:02)
[2016-09-26] MEDS: SENNOSIDES 8.6 MG TAB PO SCH (22:02)
[2016-09-27] VITALS (27 sets, daily range): BP systolic 115–159; BP diastolic 76–103; PULSE 83–116; RESP 16–20; TEMP 98.4–99.8; O2SAT 93–98
[2016-09-27] MEDS: oxyCODONE/ACETAMINOPHEN 5 MG/325 MG TAB PO PRN ×6 (01:13→23:08)
[2016-09-27] MEDS: INSULIN ASPART SUPPLEMENTAL SCALE SQ SCH ×6 (01:18→20:14)
[2016-09-27] MEDS: PANTOPRAZOLE SOD 40 MG DELAYED RELEASE TAB PO SCH (06:18)
[2016-09-27] MEDS: METOCLOPRAMIDE HCL 10 MG/2 ML VIAL IV PUSH SCH (06:19)
[2016-09-27 06:52] LABS: AUTOMATED NEUTROPHIL # 11.8 TH/MM3 (1.8-7.7); BASOPHIL % 0.2 % (0.0-2.0); EOSINOPHIL % 0.1 % (0.0-4.0); HEMATOCRIT 27.4 % (39.0-51.0); LYMPH % 12.7 % (9.0-44.0); MEAN CELL VOLUME 76.2 FL (80.0-100.0); MEAN CORPUSCULAR HEMOGLOBIN 24.2 PG (27.0-34.0); MEAN CORPUSCULAR HGB CONC 31.8 % (32.0-36.0); MONO % 12.3 % (0.0-8.0); NEUT % 74.7 % (16.0-70.0); PLATELET COUNT 184 TH/MM3 (150-450); WHITE BLOOD COUNT 15.8 TH/MM3 (4.0-11.0)
[2016-09-27 06:53] LABS: PROTHROMBIN TIME - PATIENT 11.5 SEC (9.8-11.6)
[2016-09-27 07:03] LABS: HEMO FLAGS AUTO DIFF
[2016-09-27 07:17] LABS: BICARBONATE 28.2 MEQ/L (21.0-32.0); MAGNESIUM 2.2 MG/DL (1.5-2.5); POTASSIUM 4.2 MEQ/L (3.5-5.1)
[2016-09-27] MEDS: RESP: ALBUTEROL 2.5 MG/IPRATROPIUM 0.5 MG NEB (SCH) NEB ×3 (07:33→20:44)
[2016-09-27] MEDS: MAGNESIUM HYDROXIDE SUSP 30 ML CUP PO SCH (08:48)
[2016-09-27] MEDS: GLIMEPIRIDE 4 MG TAB PO SCH (08:48)
[2016-09-27] MEDS: POLYETHYLENE GLYCOL 17 GM PKG PO SCH (08:48)
[2016-09-27] MEDS: DOCUSATE SODIUM 100 MG CAP PO SCH ×2 (08:49→20:14)
[2016-09-27] MEDS: CARVEDILOL 3.125 MG TAB PO SCH ×2 (08:49→20:14)
[2016-09-27] MEDS: metFORMIN HCL 500 MG TAB PO SCH ×2 (08:49→17:51)
[2016-09-27] MEDS: MULTIVITAMINS/MINERALS THERAPEUTIC TAB PO SCH (08:50)
[2016-09-27] MEDS: AMIODARONE 200 MG TAB PO SCH ×2 (08:50→20:14)
[2016-09-27] MEDS: ASPIRIN 81 MG CHEW TAB PO SCH (08:50)
[2016-09-27 09:14] LABS: OVALOCYTES 1+ (NORMAL); SCAN/DIFF AUTO DIFF CONFIRMED
--- NOTE | 2016-09-27 09:41 | PD.CAR.PN ---
CVT Progress Note Subjective/Hospital Course: 61/ male hx of severe MR and TR echo i August showed dilation of LV with preserved EF , pt had noted some mild dyspnea with exertion PMH: HTN, HLP, mild CHF EF 60% , CKD stage 111, DM surgery: Mitral valve replacement with a OnX mechanical valve, OPAL Attempted minimally invasive approach with a right thoracotomy cyst removed from behind aorta and left atrium ( gram stain neg for organisms ) 09/25 3200cc/ crystalloid, 750cc cell saver, EBL 1500 extubated after surgery 09/26 pt up in chair, pain controlled weaned off insulin gtt resume oral Diabetic meds in am pulm toileting , nebs, ezpap will transfer to stepdown 09/27 CT removed Will start Coumadin for mechanical valve Objective: Vital Signs Date Time Temp Pulse Resp B/P Pulse Ox O2 Delivery O2 Flow Rate FiO2 09/27/16 06:00 86 09/27/16 05:00 87 09/27/16 04:00 94 Nasal Cannula 2.00 09/27/16 04:00 85 09/27/16 03:00 98.5 96 18 148/96 96 09/27/16 03:00 86 09/27/16 02:00 83 09/27/16 01:00 86 09/27/16 00:00 95 Nasal Cannula 2.00 09/27/16 00:00 85 09/26/16 23:00 98.8 93 18 124/88 95 09/26/16 23:00 91 09/26/16 22:00 94 09/26/16 21:26 97 Nasal Cannula 2.00 09/26/16 21:26 97 Nasal Cannula 2.00 09/26/16 21:00 84 09/26/16 20:00 93 Nasal Cannula 2.00 09/26/16 20:00 88 09/26/16 19:00 90 09/26/16 19:00 98.8 94 20 160/98 92 Arterial Line 09/26/16 17:01 92 09/26/16 16:46 Room Air 94 09/26/16 16:00 84 09/26/16 15:15 98.7 86 16 144/94 94 09/26/16 15:00 80 09/26/16 14:01 83 09/26/16 13:00 88 09/26/16 12:30 98 Nasal Cannula 3.00 09/26/16 12:00 80 09/26/16 11:15 98.4 81 18 140/86 97 09/26/16 11:01 18 09/26/16 11:00 80 09/26/16 09:42 94 Nasal Cannula 3.00 Labs: Laboratory Tests Test 09/27/16 06:00 White Blood Count 15.8 TH/MM3 (4.0-11.0) Red Blood Count 3.60 MIL/MM3 (4.50-5.90) Hemoglobin 8.7 GM/DL (13.0-17.0) Hematocrit 27.4 % (39.0-51.0) Mean Corpuscular Volume 76.2 FL (80.0-100.0) Mean Corpuscular Hemoglobin 24.2 PG (27.0-34.0) Mean Corpuscular Hemoglobin 31.8 % Concent (32.0-36.0) Red Cell Distribution Width 17.0 % (11.6-17.2) Platelet Count 184 TH/MM3 (150-450) Mean Platelet Volume 7.5 FL (7.0-11.0) Neutrophils (%) (Auto) 74.7 % (16.0-70.0) Lymphocytes (%) (Auto) 12.7 % (9.0-44.0) Monocytes (%) (Auto) 12.3 % (0.0-8.0) Eosinophils (%) (Auto) 0.1 % (0.0-4.0) Basophils (%) (Auto) 0.2 % (0.0-2.0) Neutrophils # (Auto) 11.8 TH/MM3 (1.8-7.7) Lymphocytes # (Auto) 2.0 TH/MM3 (1.0-4.8) Monocytes # (Auto) 2.0 TH/MM3 (0-0.9) Eosinophils # (Auto) 0.0 TH/MM3 (0-0.4) Basophils # (Auto) 0.0 TH/MM3 (0-0.2) CBC Comment AUTO DIFF Differential Comment AUTO DIFF CONFIRMED Ovalocytes 1+ (NORMAL) Prothrombin Time 11.5 SEC (9.8-11.6) Prothromb Time International 1.0 RATIO Ratio Sodium Level 141 MEQ/L (136-145) Potassium Level 4.2 MEQ/L (3.5-5.1) Chloride Level 107 MEQ/L (98-107) Carbon Dioxide Level 28.2 MEQ/L (21.0-32.0) Anion Gap 6 MEQ/L (5-15) Blood Urea Nitrogen 25 MG/DL (7-18) Creatinine 1.20 MG/DL (0.60-1.30) Estimat Glomerular Filtration 61 ML/MIN (>89) Rate Random Glucose 101 MG/DL (74-106) Calcium Level 8.0 MG/DL (8.5-10.1) Magnesium Level 2.2 MG/DL (1.5-2.5) Result Diagram: 09/27/16 0600 09/27/16 0600 (1) Chronic back pain (2) Mitral regurgitation (3) S/P MVR (mitral valve replacement) Plan: on ASA, start low dose coreg pulm toileting OOB/ ambulate, leave chest tubes in CM to eval for HHC (4) Hypertension, benign Plan: controlled (5) CHF (congestive heart failure) (6) Diabetes mellitus type 2, controlled Plan: on diabetic diet/ weaned off IV insulin gtt start po meds in am (7) Chronic kidney disease Plan: baseline 1.5 > 1.32 Problem Qualifiers (1) Chronic kidney disease: Qualified Code: N18.3 - Chronic kidney disease, stage 3 (moderate) Aide Arteaga MD Sep 27, 2016 09:41
[2016-09-27] MEDS: WARFARIN SOD 5 MG TAB PO SCH (16:05)
[2016-09-27] MEDS: traZODone HCL 50 MG TAB PO SCH (20:13)
[2016-09-27] MEDS: SENNOSIDES 8.6 MG TAB PO SCH (20:14)
[2016-09-28] VITALS (26 sets, daily range): BP systolic 131–160; BP diastolic 76–91; PULSE 82–107; RESP 16–20; TEMP 98.1–98.8; O2SAT 93–96
[2016-09-28] MEDS: oxyCODONE/ACETAMINOPHEN 5 MG/325 MG TAB PO PRN ×4 (02:56→20:15)
[2016-09-28] MEDS: PANTOPRAZOLE SOD 40 MG DELAYED RELEASE TAB PO SCH (05:45)
[2016-09-28] MEDS: INSULIN ASPART SUPPLEMENTAL SCALE SQ SCH ×4 (05:46→20:17)
[2016-09-28 07:23] LABS: INTERNATIONAL NORMALIZED RATIO 1.1 RATIO; PROTHROMBIN TIME - PATIENT 12.2 SEC (9.8-11.6)
[2016-09-28] MEDS: RESP: ALBUTEROL 2.5 MG/IPRATROPIUM 0.5 MG NEB (SCH) NEB ×2 (08:28→13:58)
[2016-09-28] MEDS: POLYETHYLENE GLYCOL 17 GM PKG PO SCH (09:00)
[2016-09-28] MEDS: DOCUSATE SODIUM 100 MG CAP PO SCH ×2 (09:00→20:15)
[2016-09-28] MEDS: MAGNESIUM HYDROXIDE SUSP 30 ML CUP PO SCH (09:00)
[2016-09-28] MEDS: metFORMIN HCL 500 MG TAB PO SCH ×2 (09:15→17:00)
[2016-09-28] MEDS: CARVEDILOL 3.125 MG TAB PO SCH ×2 (09:15→20:16)
[2016-09-28] MEDS: AMIODARONE 200 MG TAB PO SCH ×2 (09:15→20:15)
[2016-09-28] MEDS: GLIMEPIRIDE 4 MG TAB PO SCH (09:15)
[2016-09-28] MEDS: MULTIVITAMINS/MINERALS THERAPEUTIC TAB PO SCH (09:15)
[2016-09-28] MEDS: ASPIRIN 81 MG CHEW TAB PO SCH (09:15)
--- NOTE | 2016-09-28 13:34 | PD.CAR.PN ---
CVT Progress Note Subjective/Hospital Course: 61/ male hx of severe MR and TR echo i August showed dilation of LV with preserved EF , pt had noted some mild dyspnea with exertion PMH: HTN, HLP, mild CHF EF 60% , CKD stage 111, DM surgery: Mitral valve replacement with a OnX mechanical valve, OPAL Attempted minimally invasive approach with a right thoracotomy cyst removed from behind aorta and left atrium ( gram stain neg for organisms ) 09/25 3200cc/ crystalloid, 750cc cell saver, EBL 1500 extubated after surgery 09/26 pt up in chair, pain controlled weaned off insulin gtt resume oral Diabetic meds in am pulm toileting , nebs, ezpap will transfer to stepdown 09/27 CT removed Will start Coumadin for mechanical valve 09/28 Doing well Coumadin 5mg Possibly D/C tomorrow Objective: Vital Signs Date Time Temp Pulse Resp B/P Pulse Ox O2 Delivery O2 Flow Rate FiO2 09/28/16 13:00 90 09/28/16 12:20 18 09/28/16 12:00 90 09/28/16 11:00 98.6 94 16 140/83 96 09/28/16 11:00 96 09/28/16 10:00 94 09/28/16 09:00 90 09/28/16 08:29 93 21 09/28/16 08:20 89 09/28/16 07:48 18 09/28/16 07:00 85 09/28/16 07:00 93 Room Air 09/28/16 07:00 98.1 85 20 138/83 93 09/28/16 06:00 91 09/28/16 05:00 107 09/28/16 04:00 86 09/28/16 03:00 88 09/28/16 03:00 94 Room Air 09/28/16 03:00 98.5 88 16 131/87 94 09/28/16 02:00 83 09/28/16 01:00 84 09/28/16 00:00 85 09/27/16 23:00 90 09/27/16 23:00 98.6 86 18 115/76 96 09/27/16 23:00 96 Room Air 09/27/16 22:00 84 09/27/16 21:00 86 09/27/16 20:44 97 21 09/27/16 20:00 86 09/27/16 19:00 90 09/27/16 19:00 99.5 94 16 149/88 97 09/27/16 19:00 97 Room Air 09/27/16 18:03 92 09/27/16 17:03 95 09/27/16 16:04 87 09/27/16 15:11 93 Room Air 09/27/16 15:10 99.8 89 16 121/80 93 09/27/16 15:05 87 09/27/16 14:02 91 Labs: Laboratory Tests Test 09/28/16 05:00 Prothrombin Time 12.2 SEC (9.8-11.6) Prothromb Time International 1.1 RATIO Ratio Result Diagram: 09/27/16 0600 09/27/16 0600 (1) Chronic back pain (2) Mitral regurgitation (3) S/P MVR (mitral valve replacement) Plan: on ASA, start low dose coreg pulm toileting OOB/ ambulate, leave chest tubes in CM to eval for HHC (4) Hypertension, benign Plan: controlled (5) CHF (congestive heart failure) (6) Diabetes mellitus type 2, controlled Plan: on diabetic diet/ weaned off IV insulin gtt start po meds in am (7) Chronic kidney disease Plan: baseline 1.5 > 1.32 Problem Qualifiers (1) Chronic kidney disease: Qualified Code: N18.3 - Chronic kidney disease, stage 3 (moderate) Aide Arteaga MD Sep 28, 2016 13:34
[2016-09-28] MEDS: WARFARIN SOD 5 MG TAB PO SCH (16:56)
[2016-09-28] MEDS: traZODone HCL 50 MG TAB PO SCH (20:15)
[2016-09-28] MEDS: SENNOSIDES 8.6 MG TAB PO SCH (20:15)
[2016-09-29] VITALS (18 sets, daily range): BP systolic 140–150; BP diastolic 86–98; PULSE 74–94; RESP 16–18; TEMP 97.8–98.8; O2SAT 97
[2016-09-29] MEDS: oxyCODONE/ACETAMINOPHEN 5 MG/325 MG TAB PO PRN (01:52)
[2016-09-29 04:22] LABS: INTERNATIONAL NORMALIZED RATIO 1.4 RATIO; PROTHROMBIN TIME - PATIENT 15.4 SEC (9.8-11.6)
[2016-09-29] MEDS: PANTOPRAZOLE SOD 40 MG DELAYED RELEASE TAB PO SCH (05:25)
[2016-09-29] MEDS: INSULIN ASPART SUPPLEMENTAL SCALE SQ SCH ×2 (06:35→12:16)
[2016-09-29] MEDS: MAGNESIUM HYDROXIDE SUSP 30 ML CUP PO SCH (09:00)
[2016-09-29] MEDS: POLYETHYLENE GLYCOL 17 GM PKG PO SCH (09:00)
[2016-09-29] MEDS: ASPIRIN 81 MG CHEW TAB PO SCH (09:48)
[2016-09-29] MEDS: MULTIVITAMINS/MINERALS THERAPEUTIC TAB PO SCH (09:48)
[2016-09-29] MEDS: DOCUSATE SODIUM 100 MG CAP PO SCH (09:48)
[2016-09-29] MEDS: CARVEDILOL 3.125 MG TAB PO SCH (09:48)
[2016-09-29] MEDS: GLIMEPIRIDE 4 MG TAB PO SCH (09:48)
[2016-09-29] MEDS: metFORMIN HCL 500 MG TAB PO SCH (09:49)
[2016-09-29] MEDS: AMIODARONE 200 MG TAB PO SCH (09:49)
[2016-09-29] MEDS ORDERED: WARFARIN SOD 5 MG TAB PO SCH (14:30)
[2016-09-29] MEDS ORDERED: DOCU1CAP39 PO (14:32)
[2016-09-29] MEDS ORDERED: AMIO200T PO (14:32)
[2016-09-29] MEDS ORDERED: COUM5TAB PO (14:32)
[2016-09-29] MEDS ORDERED: CARV3.125 PO (14:32)
[2016-09-29] MEDS ORDERED: THERM PO (14:32)
--- NOTE | 2016-09-29 14:43 | HHI.DS ---
Discharge Summary Admission Date Sep 25, 2016 at 08:32 Discharge Date: Sep 29, 2016 Admitting Diagnosis mitral regurgitation/ dyspnea (1) Acute congestive heart failure Diagnosis: Secondary (2) Diabetes mellitus type 2, controlled Diagnosis: Principal (3) S/P MVR (mitral valve replacement) Diagnosis: Secondary (4) mitral recurgitation Procedures Mitral valve replacement with a 31/33 OnX mechanical valve, OPAL 09/25 Attempted minimally invasive approach with a right thoracotomy Brief History 61/ male hx of severe MR and TR echo i August showed dilation of LV with preserved EF , pt had noted some mild dyspnea with exertion PMH: HTN, HLP, mild CHF EF 60% , CKD stage 111, DM surgery: Mitral valve replacement with a 31/33 OnX mechanical valve, OPAL Attempted minimally invasive approach with a right thoracotomy cyst removed from behind aorta and left atrium ( gram stain neg for organisms ) 09/25 CBC/BMP: 09/27/16 0600 09/27/16 0600 Significant Findings Laboratory Tests Test 09/27/16 09/28/16 09/29/16 06:00 05:00 03:53 White Blood Count 15.8 TH/MM3 (4.0-11.0) Red Blood Count 3.60 MIL/MM3 (4.50-5.90) Hemoglobin 8.7 GM/DL (13.0-17.0) Hematocrit 27.4 % (39.0-51.0) Mean Corpuscular Volume 76.2 FL (80.0-100.0) Mean Corpuscular Hemoglobin 24.2 PG (27.0-34.0) Mean Corpuscular Hemoglobin 31.8 % Concent (32.0-36.0) Neutrophils (%) (Auto) 74.7 % (16.0-70.0) Monocytes (%) (Auto) 12.3 % (0.0-8.0) Neutrophils # (Auto) 11.8 TH/MM3 (1.8-7.7) Monocytes # (Auto) 2.0 TH/MM3 (0-0.9) Ovalocytes 1+ (NORMAL) Blood Urea Nitrogen 25 MG/DL (7-18) Estimat Glomerular Filtration 61 ML/MIN (>89) Rate Calcium Level 8.0 MG/DL (8.5-10.1) Prothrombin Time 12.2 SEC 15.4 SEC (9.8-11.6) (9.8-11.6) Imaging Last Impressions Chest X-Ray 09/26/16 0500 Signed Impressions: Service Date/Time: Monday, September 26, 2016 04:21 - CONCLUSION: Interval extubation. Patchy basilar consolidation likely related to atelectasis. No discrete infiltrate observed. Damian Chase Jr., MD PE at Discharge GENERAL: SKIN: Warm and dry.prevena dressing to chest HEAD: Normocephalic. EYES: No scleral icterus. No injection or drainage. NECK: Supple, trachea midline. No JVD or lymphadenopathy. CARDIOVASCULAR: Regular rate and rhythm without murmurs, gallops, or rubs. RESPIRATORY: Breath sounds equal bilaterally. No accessory muscle use. GASTROINTESTINAL: Abdomen soft, non-tender, nondistended. MUSCULOSKELETAL: No cyanosis, or edema. BACK: Nontender without obvious deformity. No CVA tenderness. Pt Condition on Discharge: Good Discharge Disposition: Disch w/ Home Health Serv Discharge Instructions DIET: Follow Instructions for: Heart Healthy Diet, Diabetic Diet, Coumadin ( Warfarin) Diet Activities you can perform: Full Weight Bearing, Shower Only-No Bath Activities to avoid: Lifting/Bending, Strenuous Activity, Driving Additional Activity Instructio: no lifting > 8lbs or gallon of milk Follow up Referrals: Cardiology - 10/23/16 with Hira Zhu MD PCP Follow-up - 10/09/16 with Zaheer Hill MD Surgical - 10/09/16 with Greta Forte MD New Orders: 2D ECHO - 2 Weeks BASIC METABOLIC PROF - 2 Weeks CBC NO DIFF - 2 Weeks PT/INR - 2-3 Days X-RAY CHEST PA & LAT - 2 Weeks New Medications: Amiodarone (Amiodarone) 200 Mg Tab 200 MG PO Q12HR heart rhythm #28 Ref 0 TAB Carvedilol (Coreg) 3.125 Mg Tab 6.25 MG PO Q12HR Blood Pressure Management #60 Ref 2 TAB Docusate Sodium (Dok) 100 Mg Cap 100 MG PO BID Constipation #60 Ref 2 CAP Multiple Vitamins W/ Minerals (Thera M Plus) 1 Tab 1 TAB PO DAILY multi vitamin #30 Ref 0 TAB Warfarin (Coumadin) 5 Mg Tab 5 MG PO DAILY@1600 keep INR 2-2.5/ hold for INR>3.0 Blood Clot Prevention #30 Ref 2 TAB Continued Medications: Albuterol 6.7 GM Inh (Proventil Hfa 6.7 GM Inh) 90 Mcg/Act Aer 2 PUFF INH Q4-6H PRN SHORTNESS OF BREATH #1 Ref 0 INHALER Aspirin (Aspirin) 81 Mg Chew 81 MG CHEW DAILY Ref 0 TAB Cetirizine (Cetirizine) 10 Mg Tab 10 MG PO DAILY Allergies Ref [address] (Diclofenac Sodium DR) 50 Mg Tabdr 50 MG PO BID #60 Ref 0 TAB Fluticasone Propionate (Nasal) (Allergy Nasal [place] 24 Ho) 50 Mcg/Act Spr 1 MCG NASAL DAILY Glimepiride (Glimepiride) 4 Mg Tab 4 MG PO DAILY Take with breakfast or first main meal Blood Sugar Management #30 Ref 0 TAB Hydrocortisone (Rectal) (Proctozone-Hc) 2.5 % Cre 1 TOPICAL QID Metformin (Metformin) 1,000 Mg Tab 1000 MG PO BIDPC With meals Blood Sugar Management #60 Ref 0 TAB Methocarbamol (Methocarbamol) 500 Mg Tab 500 MG PO BID Muscle Spasm #120 Ref 0 TAB Omeprazole (Omeprazole) 20 Mg Tab 20 MG PO BID #30 Ref 0 TAB Ranitidine (Ranitidine) 150 Mg Tab 150 MG PO DAILY Heartburn Management #30 Ref 0 TAB Trazodone (Trazodone) 50 Mg Tab 50 MG PO HS Control Depression #30 Ref 0 TAB Discontinued Medications: Carvedilol (Carvedilol) 25 Mg Tab 25 MG PO BID #60 Ref 0 TAB Furosemide (Furosemide) 40 Mg Tab 40 MG PO DAILY #30 Ref 0 TAB Lisinopril (Lisinopril) 20 Mg Tab 20 MG PO BID #30 Ref 0 TAB Potassium Chloride ER (Potassium Chloride ER) 20 Meq Tab 20 MEQ PO BID Electrolyte Replacement #60 Ref 0 TAB Tramadol (Tramadol) 50 Mg Tab 50 MG PO Q8H PRN PAIN Ref 0 TAB Shasta Ramírez Sep 29, 2016 14:43
== END 2016-09-29 16:44 | disposition home health service (06) | DRG 219 ==
LOC: HSDI 09-25 08:32 → HCVR 09-25 17:21 → HCIN 09-26 10:17
PROVIDERS: ADMIT Thoracic Surgery (Cardiothoracic Vascular Surgery); ATTEND Thoracic Surgery (Cardiothoracic Vascular Surgery)
PROC: B246ZZ4 Ultrasonography of Right and Left Heart, Transesophageal (ICD-10-PCS; 2016-09-25)
PROC: 02B Heart and Great Vessels, Excision (ICD-10-PCS; 2016-09-25)
PROC: 02RG0JZ Replacement of Mitral Valve with Synthetic Substitute, Open Approach (ICD-10-PCS; principal; 2016-09-25 10:29)
PROC: 5A1221Z Performance of Cardiac Output, Continuous (ICD-10-PCS; 2016-09-25 10:29)
DX: I34.0 Nonrheumatic mitral (valve) insufficiency (principal); I51.1 Rupture of chordae tendineae, not elsewhere classified; I31.0 Chronic adhesive pericarditis; I13.0 Hypertensive heart and chronic kidney disease with heart failure and stage 1 through stage 4 chronic kidney disease, or unspecified chronic kidney disease; I50.9 Heart failure, unspecified; E11.22 Type 2 diabetes mellitus with diabetic chronic kidney disease; N18.3 Chronic kidney disease, stage 3 (moderate); E78.5 Hyperlipidemia, unspecified
CPT/HCPCS: 36430; 71010; 76937; 80048; 82948; 83735; 85014; 85025; 85027; 85610; 86850; 86900; 86901; 86920; 87015; 87070; 87102; 87116; 87205; 87206; 88304; 88305; 93005; 93318; 94002; 94150; 94640; 94664; 94667; 94668; C1898; J0131; J0171; J0690; J1644; J1815; J1940; J2150; J2250; J2370; J2720; J2765; J2930; J3010; J3370; J3475; J3480; J7040; J7050; J7120; P9016; P9047

== ENCOUNTER 2016-11-24 13:48 | Emergency (ER) | payer OTHER ==
[~2016-11-24] VITALS: Ht 185.4 cm; Wt 113.0 kg
[~2016-11-24 13:48] MED LIST changes: +AMIO200T PO; +ASPI81CH CHEW; -CARV25TA PO; +CARV3.125 PO; +COUM5TAB PO; +DOCU1CAP39 PO; -FURO40TA PO; -LISI-515 PO; -POTA-163 PO; +THERM PO; -TRAM50TA PO
[2016-11-24 13:51] VITALS: BP 187/99; PULSE 98; RESP 17; TEMP 98.3; O2SAT 99
--- NOTE | 2016-11-24 16:11 | PD ---
HPI Chief Complaint: Musculoskeletal Complaint Time Seen by Provider: 16:08 Travel History International Travel<30 days: No Contact w/Intl Traveler<30days: No Traveled to known affect area: No History of Present Illness HPI This is a 61-year-old male who was on Coumadin for a mitral valve replacement who presents to the emergency department with bruising on his right arm that started 3 days ago, constant, severe, turning purple rapidly. He has a history of rotator cuff injury on that side and was rubbing Biofreeze on his arm over the weekend. He is not having any pain in the arm currently. He was just concerned because of the color of the arm. He does say that he thinks he mixed up his Coumadin last week and might of been taking them twice a day instead of once a day for 3 days in a row. PFSH Past Medical History Cancer: No Cardiovascular Problems: Yes High Cholesterol: No Chest Pain: No Congestive Heart Failure: Yes (NEW ONSET) Diabetes: Yes Diminished Hearing: No Endocrine: Yes Gastrointestinal Disorders: No Glaucoma: No Genitourinary: No Hepatitis: No Hiatal Hernia: No Hypertension: Yes Immune Disorder: No Musculoskeletal: Yes (DDD ) Neurologic: No Psychiatric: No Reproductive: No Respiratory: Yes (SOB FROM CHF) Integumentary: No Immunizations Current: Yes Thyroid Disease: No Past Surgical History AICD: No Body Medical Devices: PINS IN HIP Joint Replacement: No Pacemaker: No Thoracic Surgery: No Social History Alcohol Use: No Tobacco Use: No Substance Use: No Allergies-Medications (Allergen,Severity, Reaction): Coded Allergies: No Known Allergies (Verified , 11/24/16) Reported Meds & Prescriptions Reported Meds & Active Scripts Active Coumadin (Warfarin) 5 Mg Tab 5 Mg PO DAILY@1600 keep INR 2-2.5/ hold for INR>3.0 Thera M Plus (Multivitamins/Minerals Therapeutic) 1 Tab 1 Tab PO DAILY Dok (Docusate Sodium) 100 Mg Cap 100 Mg PO BID Coreg (Carvedilol) 3.125 Mg Tab 6.25 Mg PO Q12HR Reported Furosemide 40 Mg Tab 40 Mg PO DAILY Lisinopril 20 Mg Tab 20 Mg PO DAILY Aspirin 81 Mg Chew 81 Mg CHEW DAILY Trazodone (Trazodone HCl) 50 Mg Tab 50 Mg PO HS Ranitidine (Ranitidine HCl) 150 Mg Tab 150 Mg PO DAILY Proventil Hfa 6.7 GM Inh (Albuterol Sulfate) 90 Mcg/Act Aer 2 Puff INH Q4-6H PRN Omeprazole 20 Mg Tab 20 Mg PO BID Methocarbamol 500 Mg Tab 500 Mg PO BID Metformin (Metformin HCl) 1,000 Mg Tab 1,000 Mg PO BIDPC With meals Glimepiride 4 Mg Tab 4 Mg PO DAILY Take with breakfast or first main meal Diclofenac Sodium DR (Diclofenac Sodium) 50 Mg Tabdr 50 Mg PO BID Cetirizine (Cetirizine HCl) 10 Mg Tab 10 Mg PO DAILY Review of Systems Except as stated in HPI: all other systems reviewed are Neg Physical Exam Narrative GENERAL:Well appearing, no acute distress SKIN: Ecchymoses over the medial aspect of the right arm from the mid humerus down past the elbow. HEAD: Atraumatic. Normocephalic. EYES: Pupils equal and round. No injection or drainage. ENT: Moist mucous membranes NECK: Trachea midline. CARDIOVASCULAR: Regular rate and rhythm. No murmur appreciated. 2+ right radial pulse with normal capillary refill. RESPIRATORY: Clear to auscultation. Breath sounds equal bilaterally. GASTROINTESTINAL: Abdomen soft, non-tender, nondistended. MUSCULOSKELETAL: No obvious deformities. NEUROLOGICAL: Awake and alert. No obvious cranial nerve deficits. Moving all extremities. PSYCHIATRIC: Appropriate mood and affect; insight and judgment normal. Data Data Last Documented VS Vital Signs Date Time Temp Pulse Resp B/P Pulse Ox O2 Delivery O2 Flow Rate FiO2 11/24/16 16:14 15 11/24/16 13:51 98.3 98 187/99 99 Orders Prothrombin Time / Inr (Pt) (11/24/16 16:08) Complete Blood Count With Diff (11/24/16 16:08) Labs Laboratory Tests Test 11/24/16 16:25 White Blood Count 9.1 TH/MM3 Red Blood Count 3.95 MIL/MM3 Hemoglobin 8.9 GM/DL Hematocrit 28.8 % Mean Corpuscular Volume 72.9 FL Mean Corpuscular Hemoglobin 22.6 PG Mean Corpuscular Hemoglobin 31.0 % Concent Red Cell Distribution Width 18.6 % Platelet Count 316 TH/MM3 Mean Platelet Volume 7.3 FL Neutrophils (%) (Auto) 69.8 % Lymphocytes (%) (Auto) 19.8 % Monocytes (%) (Auto) 7.9 % Eosinophils (%) (Auto) 1.6 % Basophils (%) (Auto) 0.9 % Neutrophils # (Auto) 6.3 TH/MM3 Lymphocytes # (Auto) 1.8 TH/MM3 Monocytes # (Auto) 0.7 TH/MM3 Eosinophils # (Auto) 0.1 TH/MM3 Basophils # (Auto) 0.1 TH/MM3 CBC Comment DIFF FINAL Differential Comment Prothrombin Time 23.8 SEC Prothromb Time International 2.1 RATIO Ratio MDM Medical Decision Making Medical Screen Exam Complete: Yes Emergency Medical Condition: Yes Interpretation(s) Hemoglobin is 8.9 similar to prior from September PT is 2.1 Differential Diagnosis Ecchymoses, supratherapeutic INR, compartment syndrome, hematoma Narrative Course This is a 61-year-old male who presents the emergency department with ecchymoses involving his right arm. He thinks he doubled up on his Coumadin for 3 days last week. He has a benign neurovascular exam of the right upper extremity. He is anemic but this is at baseline. He does have an INR of 2.1 which is on target for his goal of 2-2.5. Patient will be discharged home. Diagnosis Primary Impression: Ecchymoses, spontaneous Patient Instructions: General Instructions Additional Instructions: If you develop lightheadedness, dizziness or severe pain in your arm return to the emergency department. Follow up with your primary care physician and your director music. Med/Other Pt SpecificInfo: No Change to Meds Disposition: 01 DISCHARGE HOME Condition: Stable Sandi Dugan MD Nov 24, 2016 16:11
[2016-11-24] MEDS ORDERED: LISI-515 PO (16:21)
[2016-11-24] MEDS ORDERED: FURO40TA PO (16:23)
[2016-11-24 16:48] LABS: AUTOMATED NEUTROPHIL # 6.3 TH/MM3 (1.8-7.7); BASOPHIL # 0.1 TH/MM3 (0-0.2); BASOPHIL % 0.9 % (0.0-2.0); EOSINOPHIL # 0.1 TH/MM3 (0-0.4); EOSINOPHIL % 1.6 % (0.0-4.0); HEMATOCRIT 28.8 % (39.0-51.0); HEMO FLAGS DIFF FINAL; LYMPH % 19.8 % (9.0-44.0); LYMPHOCYTE # 1.8 TH/MM3 (1.0-4.8); MEAN CELL VOLUME 72.9 FL (80.0-100.0); MEAN CORPUSCULAR HEMOGLOBIN 22.6 PG (27.0-34.0); MONO % 7.9 % (0.0-8.0); NEUT % 69.8 % (16.0-70.0); PLATELET COUNT 316 TH/MM3 (150-450); RED BLOOD COUNT 3.95 MIL/MM3 (4.50-5.90); RED CELL DISTRIBUTION WIDTH 18.6 % (11.6-17.2); WHITE BLOOD COUNT 9.1 TH/MM3 (4.0-11.0)
[2016-11-24 16:52] LABS: INTERNATIONAL NORMALIZED RATIO 2.1 RATIO; PROTHROMBIN TIME - PATIENT 23.8 SEC (9.8-11.6)
== END 2016-11-24 17:24 | disposition home or self-care (01) ==
LOC: NEPD 13:48
DX: R23.3 Spontaneous ecchymoses (principal); I50.9 Heart failure, unspecified; E11.9 Type 2 diabetes mellitus without complications; R06.02 Shortness of breath; Z95.2 Presence of prosthetic heart valve; Z79.01 Long term (current) use of anticoagulants
CPT/HCPCS: 85025; 85610; 99283